=== PATIENT | female | born 1960 | race Caucasian/White ===

== ENCOUNTER → 2017-10-15 | Outpatient (CLI) | payer BC ==
[~2017-10-15] MED LIST: AMBI5TAB PO; HYDR-3580 PO; HYDR12.56 PO; LEVA250T14 PO; LOSA100T PO; MOBI15TA PO; PREM0.3T2 PO; TRAM50TA PO; TRIA3AER
[2017-10-15 10:16] LABS: HEMATOCRIT 38.4 % (35.0-46.0); MEAN CELL VOLUME 95.6 FL (80.0-100.0); MEAN CORPUSCULAR HEMOGLOBIN 32.3 PG (27.0-34.0); MEAN CORPUSCULAR HGB CONC 33.8 % (32.0-36.0); PLATELET COUNT 326 TH/MM3 (150-450); RED BLOOD COUNT 4.02 MIL/MM3 (4.00-5.30); RED CELL DISTRIBUTION WIDTH 14.4 % (11.6-17.2)
[2017-10-15 11:03] LABS: BICARBONATE 23.9 MEQ/L (21.0-32.0); CALCIUM 9.3 MG/DL (8.5-10.1); CREATININE 0.65 MG/DL (0.50-1.00)
[2017-10-15 11:13] LABS: BILIRUBIN, URINE NEG (NEG); BLOOD, URINE NEG (NEG); GLUCOSE,URINE NEG (NEG); KETONE, URINE NEG (NEG); NITRITE,URINE NEG (NEG); SQUAMOUS EPITHELIAL CELL URINE 2 /hpf (0-5); URINE COLOR LIGHT-YELLOW (YELLW/STRAW); URINE LEUKOCYTE ESTERASE NEG (NEG)
--- NOTE | 2017-10-15 12:11 | EKG ---
Date Performed: 10/15/2017 Time Performed: 09:35:55 PTAGE: 57 years EKG: SUPRAVENTRICULAR RHYTHM ATYPICAL ECG PREVIOUS TRACING 08/12/2008 01.40 Since the previous tracing, no significant change noted DOCTOR: Ko Carter Interpretating Date/Time 10/15/2017 12:10:18
== END ==
LOC: CPRE 09:01
PROVIDERS: ATTEND Orthopaedic Surgery
DX: Z01.812 Encounter for preprocedural laboratory examination (principal); Z01.810 Encounter for preprocedural cardiovascular examination; M17.12 Unilateral primary osteoarthritis, left knee; M23.222 Derangement of posterior horn of medial meniscus due to old tear or injury, left knee; M79.609 Pain in unspecified limb; I10 Essential (primary) hypertension
CPT/HCPCS: 36415; 80048; 81001; 85027; 85610; 85730; 93005

== ENCOUNTER 2017-10-22 05:09 | Inpatient (IN) | payer BC ==
[~2017-10-22] VITALS: Ht 162.6 cm; Wt 75.4 kg
[~2017-10-22 05:09] MED LIST changes: -AMBI5TAB PO; -HYDR-3580 PO; -HYDR12.56 PO; -LEVA250T14 PO; -TRIA3AER
[2017-10-22] MEDS ORDERED: ceFAZolin 2 GM PREMIX 50 ML IV SCH (05:30)
[2017-10-22] MEDS ORDERED: TRANEXAMIC ACID IV SCH ×4 (05:30)
[2017-10-22] MEDS ORDERED: CHLORHEXIDINE GLUCONATE 4% SOLN 120 ML BTL TOPICAL SCH (05:30)
[2017-10-22] MEDS ORDERED: METOPROLOL TARTRATE 25 MG TAB PO PRN (05:30)
[2017-10-22] MEDS ORDERED: LACTATED RINGER'S 1000 ML IV PRN (05:30)
[2017-10-22] MEDS ORDERED: POVIDONE IODINE 5% (ANTISEPSIS KIT) 4 APPLICATIONS EACH NARE PRN (05:30)
[2017-10-22] MEDS ORDERED: SODIUM CHLORIDE 0.9% IV SCH ×4 (05:30)
[2017-10-22] MEDS ORDERED: SODIUM CHLORID 0.9% 500 ML IV PRN (05:30)
[2017-10-22] MEDS ORDERED: EXPAREL PERI-ARTICULAR INJECTION (TOTAL VOL. 100 ML) P-ARTICULR SCH ×2 (05:30)
[2017-10-22] MEDS ORDERED: CHLORHEXIDINE GLUCONATE 2 % 1 PACK (2 CLOTHS) TOPICAL PRN (05:30)
[2017-10-22 06:03] VITALS: PULSE 59
[2017-10-22] MEDS ORDERED: FAT EMULSION 20% INJ 0 ML ONE (06:06)
[2017-10-22] MEDS ORDERED: GENTAMICIN SULFATE 80 MG/2 ML VIAL ONE (06:07)
[2017-10-22] MEDS ORDERED: BUPIVACAINE LIPOSOME PF 1.3% 20 ML VIAL ONE (06:24)
[2017-10-22] MEDS ORDERED: ACETAMINOPHEN 1000 MG/100 ML 100 ML IV ONE (06:24)
[2017-10-22] MEDS ORDERED: LIDOCAINE HCL 1% PF 5 ML AMPULE ONE (06:24)
[2017-10-22] MEDS ORDERED: PROPOFOL 500 MG/50 ML INJ 50 ML ONE (06:25)
[2017-10-22] MEDS ORDERED: MIDAZOLAM HCL 5 MG/5 ML VIAL ONE (06:25)
[2017-10-22] MEDS ORDERED: BUPIVACAINE PF 0.75% DEX-WATER INJ 2 ML AMP ONE (06:30)
[2017-10-22] MEDS ORDERED: FAMOTIDINE 20 MG/2 ML VIAL ONE (06:30)
[2017-10-22] MEDS ORDERED: Post-op Orders (for Pharmacy) XX ONE (06:45)
[2017-10-22] MEDS ORDERED: TRANEXAMIC ACID INJ 0 MG in SODIUM CHLORIDE 0.9% INJ 100 ML IV SCH (06:45)
[2017-10-22] MEDS ORDERED: MAGNESIUM HYDROXIDE SUSP 30 ML CUP PO PRN (06:45)
[2017-10-22] MEDS ORDERED: MORPHINE SULFATE 4 MG/ML INJ IV PUSH PRN (06:45)
[2017-10-22] MEDS ORDERED: ONDANSETRON HCL 4 MG/2 ML VIAL IVP PRN (06:45)
[2017-10-22] MEDS ORDERED: MEDROXYPROGESTERONE PO SCH (09:00)
[2017-10-22] MEDS ORDERED: CONJUGATED ESTROGENS PO SCH (09:00)
[2017-10-22] MEDS ORDERED: PROPOFOL 200 MG/20 ML AMP ONE (09:16)
--- NOTE | 2017-10-22 09:18 | HHI.FF ---
Face to Face Verification Diagnosis: (1) Status post total left knee replacement Physical Therapy Gait training Knee: Total knee, Protocol: Left, Gait training, Full weight bearing Left LE Weight Bearing: WB as tolerated Left LE Range of Motion: Active ROM (Active, active assisted and passive range of motion. Range of motion goal is 0 of extension to 135 of flexion. Range of motion in the operating room was 0 extension to 145 of flexion.) Nursing Nursing: Dressing changes Dressing Changes: Daily dressing change, Coverderm/Primapore Additional Instructions Do not remove Dermabond Prineo. I have seen patient Marianela Taylor on 10/22/17. My clinical findings support the need for the requested home health care services because: Ltd mobility - disease progression Limited ability to care for self High risk of falls I certify that my clinical findings support that this patient is homebound because: Post-op weakness Unsteady gait/balance Unsafe to leave home unassisted Mary Velasquez MD (Charles) Oct 22, 2017 09:18
[2017-10-22] MEDS ORDERED: HYDR-3580 PO (09:21)
--- NOTE | 2017-10-22 09:30 | PD.OP ---
Operative Report Date of Surgery: Oct 22, 2017 Preoperative Diagnosis: (1) Primary osteoarthritis of left knee Postoperative Diagnosis: (1) Primary osteoarthritis of left knee Procedure: Left total knee arthroplasty using [place] Triathlon prosthesis (uncemented). Anesthesia: Spinal with supplemental adductor canal block regional and local with Exparel Surgeon: Mitch Velasquez MD Cheese Sprayer(s): FERNIE Seay Operation and Findings: Indications and Findings: This 57-year-old woman has had progressive worsening of knee pain that has been interfering with her activities of daily living and her ability to work in comfort. She has pain on weightbearing. She has intermittent giving way. She has pain descending stairs. She has pain standing from a seated position. She has pain whenever she walks and bears weight. She has not responded to conservative measures including analgesics, nonsteroidal anti-inflammatory agents, activity modification, exercise, intra- articular corticosteroids and physical therapy. Physical findings include mild genuine varum with medial laxity and crepitation on motion. There is tenderness on motion and an antalgic gait. Imaging studies show loss of articular cartilage in the medial compartment to [id number] with osteophytes and eburnation. Operative findings: There is severe degeneration particularly in the medial compartment with loss of articular cartilage to [id number]. There is significant eburnation and small osteophytes. The patellofemoral articulation showed significant change in the patella and in the trochlea. There is delamination of some of the cartilage. The prosthesis used was a Rodrí[place]uez Triathlon prosthesis. The femur was a size 4, uncemented, cruciate retaining. The tibial baseplate was a size 4 Tritanium with a 11 mm X3 polyethylene, cruciate retaining spacer. The patella was a size 32 mm asymmetric Tritanium backed. The patient was brought to the clean-air operating suite. A spinal anesthetic was administered as well as a regional anesthetic by adductor canal block. The position was supine with a small bolster under the hip on the operative side. A pneumatic tourniquet was applied to the upper thigh. The lower extremity was then prepped with alcohol, Hibiclens and ChloraPrep and draped in the usual manner with the knee draped free. An appropriate timeout procedure was carried out. An incision was made from about 3 fingerbreadths above the superior medial pole of patella down the tibial tubercle on the medial side. The incision was deepened through the subcutaneous tissue to the retinacular structures which were exposed medially and laterally. A medial retinacular incision was then made from the superior middle pole of patella down the tibial tubercle and up into the quadriceps tendon splitting it longitudinally and the medial one third. The patella was reflected. The infrapatellar fat pad was debulked. The anterior cruciate ligament was excised. Medial and lateral meniscectomies were initiated. Fenestrations were made in the distal femur and proximal tibia for intramedullary referencing guides. The distal femoral cutting guide and jig were then assembled for a 5, 8 mm cut. When this was fit position and placed cutting block was stabilized with pins. The jig was removed. The distal femoral cut was then completed with the oscillating saw. The sizing guide was then positioned in place along Whitesides line and the epicondylar axis and stabilized with pins. The femoral size was then determined as noted above. This was between a size 4 and a size 5. A size 4 would notch the femur. For this reason, the anterior shift block was positioned in place and the pins were shifted forward 1.5 mm. The 4-in-1 cutting block was then positioned in place. The anterior cut was made. This was then verified as being appropriate. The distal femoral cutting guide was then positioned in place and shifted 2 mm proximally. The distal femoral cut was then redone. Anterior and posterior cuts were then made followed by posterior and anterior chamfer cuts taking care to prevent injury to ligamentous structures. Osteophytes were then trimmed from the distal femur. A bone plug was then placed into the fenestration of the distal femur. The proximal tibia was then exposed. The medial and lateral meniscectomies were completed. The proximal tibial cutting guide was then positioned in place and stabilized with a pin for rotation. The depth of cut was then verified with a stylus off the lateral side. The cutting block was stabilized with pins. The jig was removed. The depth of cut was then verified and adjusted appropriately with the use of the spacer block. The proximal tibial cut was then made with the oscillating saw taking care to prevent injury to neurovascular and ligamentous structures. Proximal tibial bone was removed. Local anesthetic was administered with Exparel in the posterior capsule. The tibial baseplate trial was then positioned in place. After verifying the appropriate size, the base plate trial was positioned in place along with its spacer. The femoral component was then impacted into place. The alignment was checked. The tibial baseplate was then pinned in place on the tibia. Attention was directed to the patella. The patella drill guide was positioned in place for the appropriate sized patella. Patellar drilling was then carried out. The trial patella was positioned in place. The knee was taken through a range of motion which was easily 0 extension to 145. The patella trial was removed. The femoral drill holes were made. The femoral trials were removed. The tibial spacer was removed. A bone plug was placed into the proximal tibia. The tibial punch was impacted through the proximal tibial punch guide. This was all removed followed by placement of the tibial drill guide. The tibial drill holes were then made. The guide was removed. The cut ends of bone were then cleaned with pulse lavage. The tibial baseplate was then impacted into place and seated appropriately. The spacer was inserted. The the femoral component was then impacted into place and seated appropriately. The patella component was then seated with the patellar vice and tightened appropriately. The knee was taken through a range of motion which was comparable to the previous range of motion with excellent stability in flexion and extension and appropriate patellofemoral tracking. The remainder of the Exparel was then injected throughout the knee as a local anesthetic. Drains were brought out the superior lateral aspect of the suprapatellar pouch. Wound closure then commenced using 0 Vicryl interrupted [id number] sutures for the capsular and fascial structures, 2-0 Vicryl interrupted simple sutures with buried knots for the subcutaneous tissues and 4- 0 Monocryl, continuous subcuticular closure for the skin. The wound was then dressed with Dermabond Prineo followed by a dry dressing. Sterile soft roll with a cooling pad and Neo bandage from the base of the toes to mid thigh were then applied. Patient was then transferred from the operating room to the recovery room in satisfactory condition having tolerated procedure well. Counts are correct. Specimens: None. Estimated blood loss: 150 mL Mary Velasquez MD (Charles) Oct 22, 2017 09:30
[2017-10-22] MEDS ORDERED: DO NOT ADM ANY ANTICOAGULANT DRUGS PRN (09:44)
--- NOTE | 2017-10-22 10:31 | RADRPT ---
EXAM DATE: 10/22/2017 10:14 AM EDT AGE/SEX: 57 years / Female INDICATIONS: Post total left knee replacement. CLINICAL DATA: This is the patient's initial encounter. Patient reports that signs and symptoms have been present for 1 day and indicates a pain score of Nonresponsive. MEDICAL/SURGICAL HISTORY: Non-responsive. Non-responsive. COMPARISON: No prior exams available for comparison. FINDINGS: AP and lateral views of the knee following arthroplasty reveals a prosthesis in anatomic alignment. F racture is not appreciated. Surgical drain is evident CONCLUSION: Status post total knee arthroplasty. Pérez Morgan MD FACR Electronically signed by: Pérez Morgan MD 10/22/2017 10:30 AM EDT
[2017-10-22] MEDS ORDERED: *morphine SULFATE 4 MG/ML PERIprocedure ONLY ONE (10:53)
[2017-10-22] MEDS: LACTATED RINGER'S 1000 ML INJ 1,000 ML IV SCH ×2 (11:31→19:30)
[2017-10-22] MEDS ORDERED: KETOROLAC TROMETHAMINE 30 MG/ML (IVP) VIAL IV PUSH ONE (12:00)
[2017-10-22] MEDS ORDERED: LACTATED RINGER'S 1000 ML INJ 1,000 ML IV ONE (12:00)
[2017-10-22] MEDS ORDERED: DEXAMETHASONE SOD PHOS 4 MG/ML VIAL IV ONE (12:00)
[2017-10-22] MEDS ORDERED: PROPOFOL 200 MG/20 ML AMP IV ONE (12:00)
[2017-10-22 12:19] VITALS: BP 168/86; PULSE 68; RESP 18; TEMP 98.2; O2SAT 98
[2017-10-22] MEDS: ACETAMINOPHEN/HYDROcodone 325 MG/7.5 MG TAB PO PRN ×3 (12:21→22:59)
[2017-10-22] MEDS: LOSARTAN 50 MG TAB PO SCH (12:21)
[2017-10-22] MEDS ORDERED: ENALAPRILAT 1.25 MG/ML VIAL IV PUSH PRN (12:30)
[2017-10-22] MEDS ORDERED: ALUMINUM/MAGNESIUM/SIMETH 30 ML CUP PO PRN (12:30)
--- NOTE | 2017-10-22 12:37 | PD.CONS ---
[facility] By Dr. PAUL Velasquez Reason for Consult Opinion recommendation of treatment of patient's hypertension Primary Care Physician Pan Gonzalez M.D. Diagnoses: History of Present Illness 57-year-old white female with a history of hypertension who was had long-term history of left knee pain despite conservative treatment underwent a left total knee arthroplasty with Dr. Velasquez today. She states that her blood pressure has not been controlled well since her chronic left knee pain has been flaring up. She denies a history of constipation or any history of bloody stools or black stools. She also currently complaining of some sharp epigastric discomfort with no radiation postoperatively. In addition, she also has some discomfort around the mid pelvic area. She has not had this type of discomfort in the past. Review of Systems Constitutional: DENIES: Fatigue, Fever, Chills, Change in appetite Endocrine: DENIES: Heat/cold intolerance Eyes: DENIES: Blurred vision, Eye pain, Vision loss Ears, nose, mouth, throat: DENIES: Hearing loss, Nasal discharge, Throat pain, Ear Pain, Sinus Pain Respiratory: DENIES: Cough, Shortness of breath Cardiovascular: DENIES: Chest pain, Palpitations, Dyspnea on Exertion, Lower Extremity Edema Gastrointestinal: COMPLAINS OF: Abdominal pain, DENIES: Black stools, Bloody stools, Constipation, Diarrhea, Nausea, Vomiting, Anorexia Genitourinary: DENIES: Dysuria Musculoskeletal: COMPLAINS OF: Joint pain (Left knee pain as described in HPI) , DENIES: Muscle aches, Stiffness Integumentary: DENIES: Rash Hematologic/lymphatic: DENIES: Bruising, Lymphadenopathy Immunologic/allergic: DENIES: Eczema Neurologic: DENIES: Headache, Localized weakness, Paresthesias Psychiatric: DENIES: Anxiety, Depression, Suicidal Ideation Past Family Social History Allergies: Coded Allergies: penicillin G (Unverified Allergy, Severe, HIVES, 10/15/17) Past Medical History Chronic knee pain Hypertension Past Surgical History Cholecystectomy Right elbow surgery Reported Medications Estrogen medroxyprogesterone 1 tablet p.o. daily Losartan potassium 100 mg p.o. daily Mobic 50 mg p.o. daily Ultram 50 mg every 6 hours as needed for pain Family History Father of lung cancer Social History Does not smoke cigarettes Occasionally drinks alcohol Physical Exam Vital Signs Vital Signs Date Time Temp Pulse Resp B/P (MAP) Pulse Ox O2 Delivery O2 Flow Rate FiO2 10/22/17 12:19 98.2 68 18 168/86 (113) 98 10/22/17 11:00 96.8 69 16 165/78 (107) 100 Nasal Cannula 2 10/22/17 10:45 60 16 167/80 (109) 100 Nasal Cannula 2 10/22/17 10:30 56 16 156/86 (109) 100 Nasal Cannula 2 10/22/17 10:15 54 17 172/80 (110) 100 Nasal Cannula 2 10/22/17 10:00 54 15 157/72 (100) 100 Nasal Cannula 2 10/22/17 09:46 97.5 64 15 124/72 (89) 100 Nasal Cannula 2 10/22/17 06:03 98 Nasal Cannula 2 10/22/17 06:03 59 10/22/17 05:54 97.8 61 18 173/81 (111) 98 Physical Exam GENERAL: This is a well-nourished, well-developed patient, in no apparent distress. SKIN: No rashes, ecchymoses or lesions. Cool and dry. HEAD: Atraumatic. Normocephalic. No temporal or scalp tenderness. EYES: Pupils equal round and reactive. Extraocular motions intact. No scleral icterus. No injection or drainage. ENT: Nose without bleeding, purulent drainage or septal hematoma. Throat without erythema, tonsillar hypertrophy or exudate. Uvula midline. Airway patent. NECK: Trachea midline. No JVD or lymphadenopathy. Supple, nontender, no meningeal signs. CARDIOVASCULAR: Regular rate and rhythm without murmurs, gallops, or rubs. RESPIRATORY: Clear to auscultation. Breath sounds equal bilaterally. No wheezes , rales, or rhonchi. GASTROINTESTINAL: Abdomen soft, non-tender, nondistended. No hepato-splenomegaly , or palpable masses. No guarding. MUSCULOSKELETAL: Extremities without clubbing, cyanosis, or edema. No joint tenderness, effusion, or edema noted. No calf tenderness. Negative Homans sign bilaterally. NEUROLOGICAL: Awake and alert. Cranial nerves II through XII intact. Motor and sensory grossly within normal limits. Five out of 5 muscle strength in all muscle groups. Normal speech. Assessment and Plan Assessment and Plan 1. Status post operative left total knee arthroplasty continue postoperative care, pain control, physical therapy per Dr. Velasquez orthopedic surgery 2. Hypertension, chronic essential -resume home losartan, IV Vasotec as needed will be written with parameters for uncontrolled blood pressure. Further recommendations based on further blood pressure trends. 3. Epigastric abdominal discomfort-this may be post operative gas versus reflux , will provide Mylanta as needed and monitor symptomatically provide supportive care. Further workup if symptoms does not improve. 4. DVT prophylaxis per orthopedic surgery Thank you for this consultation Rissa Johnson MD Oct 22, 2017 12:37
[2017-10-22] MEDS ORDERED: PANTOPRAZOLE SOD 20 MG DELAYED RELEASE TAB PO ONE (13:00)
[2017-10-22] MEDS: KETOROLAC TROMETHAMINE 30 MG/ML (IVP) VIAL IVP SCH ×2 (15:07→21:00)
[2017-10-22 20:00] VITALS: BP 162/79; PULSE 54; RESP 16; TEMP 97.3; O2SAT 100
[2017-10-22] MEDS ORDERED: diphenhydrAMINE HCL 50 MG CAP PO PRN (22:45)
[2017-10-22] MEDS: ZOLPIDEM TARTRATE 5 MG TAB PO PRN (22:59)
[2017-10-22 23:30] VITALS: BP 173/83; PULSE 70; RESP 18; TEMP 97.4; O2SAT 99
[2017-10-23] MEDS: ZOLPIDEM TARTRATE 5 MG TAB PO PRN (00:20)
[2017-10-23] MEDS: KETOROLAC TROMETHAMINE 30 MG/ML (IVP) VIAL IVP SCH ×3 (03:00→15:00)
[2017-10-23 04:15] VITALS: BP 166/74; PULSE 83; RESP 18; TEMP 97.2; O2SAT 97
[2017-10-23 05:01] LABS: HEMATOCRIT 30.2 % (35.0-46.0); HEMOGLOBIN 10.3 GM/DL (11.6-15.3)
--- NOTE | 2017-10-23 06:15 | PD.ORT.PN ---
Subjective Post Op Day #: 1 Subjective Remarks She is doing well as far as the knee is concerned. She does not have a great deal of pain. She did have some trouble sleeping. Range of Motion -5 extension to 92 of flexion. Distance Walked 90 feet with PT. Objective Vitals Vital Signs Date Time Temp Pulse Resp B/P (MAP) Pulse Ox O2 Delivery O2 Flow Rate FiO2 10/23/17 04:15 97.2 83 18 166/74 (104) 97 10/22/17 23:30 97.4 70 18 173/83 (113) 99 10/22/17 20:00 97.3 54 16 162/79 (106) 100 10/22/17 17:48 20 10/22/17 16:22 20 10/22/17 15:04 20 10/22/17 12:19 98.2 68 18 168/86 (113) 98 10/22/17 11:00 96.8 69 16 165/78 (107) 100 Nasal Cannula 2 10/22/17 10:45 60 16 167/80 (109) 100 Nasal Cannula 2 10/22/17 10:30 56 16 156/86 (109) 100 Nasal Cannula 2 10/22/17 10:15 54 17 172/80 (110) 100 Nasal Cannula 2 10/22/17 10:00 54 15 157/72 (100) 100 Nasal Cannula 2 10/22/17 09:46 97.5 64 15 124/72 (89) 100 Nasal Cannula 2 I/O 10/22/17 10/22/17 10/22/17 10/23/17 10/23/17 10/23/17 07:00 15:00 23:00 07:00 15:00 23:00 Intake Total 1775 ml 480 ml Output Total 170 ml 170 ml 100 ml Balance 1605 ml -170 ml 380 ml Intake Oral 480 ml IV Total 75 ml Other 1700 ml Output Urine Total 0 ml Drainage Total 20 ml 170 ml 100 ml Estimated Blood Loss 150 ml # Voids 3 # Bowel Movements 0 Result Diagram: 10/23/17 0431 Imaging Last 24 hours Impressions Knee X-Ray 10/22/17 0688 Signed Impressions: CONCLUSION: Status post total knee arthroplasty. Pérez Morgan MD FACR Objective Remarks She is resting comfortably, supine in bed, in the CPM. The neurovascular status is intact. The dressing is dry and intact. Assessment & Plan Ortho Post Op Day #: 1 Problem List: (1) Primary osteoarthritis of left knee ICD Codes: M17.12 - Unilateral primary osteoarthritis, left knee Status: Resolved (2) Status post total left knee replacement ICD Codes: Z96.652 - Presence of left artificial knee joint Plan: Continue postop care and PT Assessment and Plan Condition: Good. Orthopedically stable. DVT prophylaxis: TEDs, aspirin, sequentials. Discharge plans: Home with home health care. An appointment was scheduled through the office. Prescriptions: [place] 7.5/325 for postop surgical pain and Ambien 5 mg for insomnia. Mary Velasquez MD (Charles) Oct 23, 2017 06:15
[2017-10-23] MEDS ORDERED: AMBI5TAB PO (06:34)
[2017-10-23 08:00] VITALS: BP 140/75; PULSE 81; RESP 19; TEMP 97.4; O2SAT 99
[2017-10-23] MEDS: LACTATED RINGER'S 1000 ML INJ 1,000 ML IV SCH (08:00)
[2017-10-23] MEDS: LOSARTAN 50 MG TAB PO SCH (08:01)
[2017-10-23] MEDS ORDERED: ASPIRIN EC 81 MG TABEC PO SCH (09:00)
--- NOTE | 2017-10-23 09:32 | HHI.DS ---
Discharge Summary Admission Date Oct 22, 2017 at 05:09 Discharge Date: Oct 23, 2017 Admitting Diagnosis Primary osteoarthritis, left knee Diagnosis: (1) Primary osteoarthritis of left knee Diagnosis: Principal ICD Codes: M17.12 - Unilateral primary osteoarthritis, left knee Status: Resolved (2) Status post total left knee replacement Diagnosis: Principal ICD Codes: Z96.652 - Presence of left artificial knee joint Procedures Left total knee arthroplasty with [place] Triathlon prosthesis (noncemented) on 10/22/2017 Brief History This is a 57 year old female patient has had long-standing left knee arthritis nonresponsive to conservative measures as detailed in the history and physical examination. Physical findings showed significant degenerative varum with tenderness in the left knee and an antalgic gait. X-rays showed severe osteoarthritis in the knee with loss of articular cartilage in the medial compartment, osteophytes and eburnation. CBC/BMP: 10/23/17 0431 Significant Findings Laboratory Tests Test 10/23/17 04:31 Hemoglobin 10.3 GM/DL (11.6-15.3) Hematocrit 30.2 % (35.0-46.0) Imaging Last 72 hours Impressions Knee X-Ray 10/22/17 0643 Signed Impressions: CONCLUSION: Status post total knee arthroplasty. Pérez Morgan MD FACR PE at Discharge She is resting comfortably, supine in bed, in the CPM. The neurovascular status is intact. The dressing is dry and intact. Hospital Course The patient was admitted as noted above. The above noted operative procedure was carried out that day. Preoperatively prophylactic antibiotics were administered Ancef according to protocol. These were continued postoperatively. The patient also received tranexamic acid to help with hemostasis according to protocol. In the postanesthesia care unit a continuous passive motion device was initiated. Also initiated were mechanical methods of DVT prophylaxis in the form of LENCHO stockings and sequentials. Physical therapy was initiated on the day of surgery. On postoperative day #1 physical therapy continued. The use of the continuous passive motion device continued. DVT prophylaxis with aspirin 81 mg twice daily was initiated at this time. The patient continued physical therapy throughout the hospitalization. The distance walked and range of motion improved throughout the hospitalization. The patient was discharged on postoperative day 1 with the disposition being to home with home health care. An appointment for follow-up was made prior to admission. Pt Condition on Discharge: Good Discharge Disposition: Disch w/ Home Health Serv Discharge Instructions Diet Instructions: As Tolerated, No Restrictions Activities You Can Perform: Full Weight Bearing, Shower Only-No Bath Activities to Avoid: Lifting/Bending, Strenuous Activity, Bathing, Driving Follow up Referrals: Orthopedics with Mary Velasquez MD (Charles) New Medications: Hydrocodone/Acetaminophen (Hydrocodone-Acetamin 7.5-325) 7.5 Mg-325 Mg Tablet 1 TAB PO Q4H for Pain Management, #30 TAB Zolpidem (Ambien) 5 Mg Tab 5 MG PO HS PRN for SLEEP for 7 Days, #7 TAB Continued Medications: Conjugated Estrogens-Medroxyprogesterone (Prempro Blister Pack) 0.3-1.5 Mg Tab 1 TAB PO DAILY for Estrogen Supplements, #1 PACK 0 Refills Losartan (Losartan) 100 Mg Tab 100 MG PO DAILY for Blood Pressure Management, #30 TAB 0 Refills Meloxicam (Mobic) 15 Mg Tab 15 MG PO DAILY, TAB 0 Refills Tramadol (Tramadol) 50 Mg Tab 50 MG PO Q6H PRN for PAIN, TAB 0 Refills Mary Velasquez MD (Charles) Oct 23, 2017 09:32
[2017-10-23] MEDS: ACETAMINOPHEN/HYDROcodone 325 MG/7.5 MG TAB PO PRN ×3 (09:44→14:21)
--- NOTE | 2017-10-23 09:49 | HHI.PR ---
Subjective Remarks Follow-up visit HTN, status post left total knee arthroplasty, insomnia. Patient seen and examined today. Reports she is doing well. States he has some nausea and vomiting has resolved. States that is probably from pain medication. Patient states she did not get a good night sleep last night. States she needs a sleeping aid. States that Ambien did not work. Otherwise, denies SOB/ dyspnea. Denies chest pain, palpitations, headaches, dizziness. Denies fevers, chills. Denies dysuria. Objective Vitals Vital Signs Date Time Temp Pulse Resp B/P (MAP) Pulse Ox O2 Delivery O2 Flow Rate FiO2 10/23/17 09:34 18 10/23/17 08:00 97.4 81 19 140/75 (96) 99 10/23/17 04:15 97.2 83 18 166/74 (104) 97 10/22/17 23:30 97.4 70 18 173/83 (113) 99 10/22/17 20:00 97.3 54 16 162/79 (106) 100 10/22/17 17:48 20 10/22/17 15:04 20 10/22/17 12:19 98.2 68 18 168/86 (113) 98 10/22/17 11:00 96.8 69 16 165/78 (107) 100 Nasal Cannula 2 10/22/17 10:45 60 16 167/80 (109) 100 Nasal Cannula 2 10/22/17 10:30 56 16 156/86 (109) 100 Nasal Cannula 2 10/22/17 10:15 54 17 172/80 (110) 100 Nasal Cannula 2 10/22/17 10:00 54 15 157/72 (100) 100 Nasal Cannula 2 I/O 10/22/17 10/22/17 10/22/17 10/23/17 10/23/17 10/23/17 07:00 15:00 23:00 07:00 15:00 23:00 Intake Total 1775 ml 480 ml Output Total 170 ml 170 ml 100 ml Balance 1605 ml -170 ml 380 ml Intake Oral 480 ml IV Total 75 ml Other 1700 ml Output Urine Total 0 ml Drainage Total 20 ml 170 ml 100 ml Estimated Blood Loss 150 ml # Voids 3 # Bowel Movements 0 Result Diagram: 10/23/17 0434 Imaging Last Impressions Knee X-Ray 10/22/17 0674 Signed Impressions: CONCLUSION: Status post total knee arthroplasty. Pérez Morgan MD FACR Objective Remarks GENERAL: This is a well-nourished, well-developed patient, in no apparent distress. SKIN: Warm and dry HEENT: Normocephalic. Pupils equal round and reactive. Nose without bleeding. Airway patent. NECK: Trachea midline. No JVD. Supple. CARDIOVASCULAR: Regular rate and rhythm without murmurs, gallops, or rubs. RESPIRATORY: Clear to auscultation. Breath sounds equal bilaterally. No wheezes , rales, or rhonchi. GASTROINTESTINAL: Abdomen soft, non-tender, nondistended. Bowel Sounds normoactive x4. MUSCULOSKELETAL: Extremities without clubbing, cyanosis. Left lower external lower extremity trace edema. NEUROLOGICAL: Awake and alert. Oriented to time, place, person. No focal neuro deficit. Moves all extremities. Normal speech. A/P Assessment and Plan 57-year-old white female with a history of hypertension who was had long-term history of left knee pain despite conservative treatment underwent a left total knee arthroplasty with Dr. Velasquez. Status post left total knee arthroplasty by Dr. Velasquez -Orthopedic management -Pain management with bowel regimen -Physical therapy eval and treat Nausea/ vomiting -Possibly anesthesia and narcotic use -Zofran ODT. May add Reglan as needed Insomnia -Ambien 5 mg, will increase to 10 mg nightly as needed -Monitor for effect HTN -Continue home medication losartan, ASA BID -Enalapril as needed -Monitor BP trend DVT prop SCDs, orthopedic placed ASA twice daily Discharge Planning Per Orthopedic Team Alanna Good Oct 23, 2017 09:49
[2017-10-23 12:00] VITALS: BP 133/68; PULSE 68; RESP 18; TEMP 97.8; O2SAT 96
[2017-10-23] MEDS ORDERED: ONDANSETRON ODT 4 MG TAB PO PRN (13:00)
[2017-10-23] MEDS ORDERED: METOCLOPRAMIDE HCL 10 MG/2 ML VIAL IV PUSH PRN (13:30)
[2017-10-23 16:00] VITALS: BP 121/67; PULSE 73; RESP 19; TEMP 97.6; O2SAT 98
[2017-10-23] MEDS ORDERED: DOCUSATE SODIUM 100 MG CAP PO SCH (21:00)
[2017-10-23] MEDS ORDERED: ZOLPIDEM TARTRATE 10 MG TAB PO PRN (21:00)
== END 2017-10-23 16:49 | disposition home health service (06) | DRG 470 ==
LOC: HSDI 05:09 → N06B 11:12
PROVIDERS: ADMIT Orthopaedic Surgery; ATTEND Orthopaedic Surgery
PROC: 3E0T3BZ Introduction of Anesthetic Agent into Peripheral Nerves and Plexi, Percutaneous Approach (ICD-10-PCS; 2017-10-22)
PROC: 0SRD0JA Replacement of Left Knee Joint with Synthetic Substitute, Uncemented, Open Approach (ICD-10-PCS; principal; 2017-10-22 06:47)
DX: M17.12 Unilateral primary osteoarthritis, left knee (principal); I10 Essential (primary) hypertension; Q76.49 Other congenital malformations of spine, not associated with scoliosis; R11.2 Nausea with vomiting, unspecified; G47.00 Insomnia, unspecified
CPT/HCPCS: 73560; 85014; 85018; 86850; 86900; 86901; 94150; C1776; C9290; J0131; J0690; J1100; J1580; J1885; J2250; J2270; J2405; J2765; J3010; J7120